=== PATIENT | male | born 1985 | race Hispanic/Latino ===

== ENCOUNTER 2024-12-12 15:50 | Observation (INO) | payer SELFPAY ==
[2024-12-12] MEDS ORDERED: Glucagon 1 MG/ML KIT IM PRN (18:50)
[2024-12-12] MEDS ORDERED: Ondansetron PF 4 MG/2 ML Vial IVP PRN (18:50)
[2024-12-12] MEDS ORDERED: Dextrose 50% Abboject 50 ML SYRINGE SLOW IVP PRN (18:50)
[2024-12-12] MEDS ORDERED: Ondansetron PF 4 MG/2 ML Vial ONE (19:40)
[2024-12-12] MEDS ORDERED: SUCCINYLCHOLINE/SOD CL,ISO/PF 200 MG/10 ML SYRINGE FS ONE (19:40)
[2024-12-12] MEDS ORDERED: Ketorolac Tromethamine 30 MG (1 mL) VIAL ONE (19:40)
[2024-12-12] MEDS ORDERED: Rocuronium Bromide 10 MG/ML (10ML VIAL) ONE (19:40)
[2024-12-12] MEDS ORDERED: Lidocaine 1% PF 5 ML VIAL ONE (19:40)
[2024-12-12] MEDS ORDERED: PROPOFOL 20 ML ONE (19:41)
[2024-12-12] MEDS ORDERED: fentaNYL PF 100 MCG/2 ML SYRINGE ONE ×2 (19:41→21:21)
[2024-12-12 20:04] VITALS: BMI 25.9
[2024-12-12] MEDS ORDERED: SUGAMMADEX SODIUM 200 MG/2 ML VIAL ONE (21:05)
[2024-12-12] MEDS ORDERED: HYDROmorphone 0.5 MG/0.5 ML SYRINGE ONE (21:21)
[2024-12-12] MEDS: Acetaminophen 325 MG TAB PO SCH (23:35)
[2024-12-13 05:42] LABS: #Basophils 0.04 10x3/uL (0.0-0.2); #Eosinophils Less than 0.03 10x3/uL (0.0-0.7); #Monocytes 0.49 10x3/uL (0.11-0.59); #Neutrophils 12.71 10x3/uL (1.40-6.50); %Basophils 0.3 % (0.0-1.0); %Eosinophils 0.0 % (0.0-10.0); %Lymphocytes 7.8 % (21.0-51.0); %Monocytes 3.4 % (0.0-10.0); %Neutrophils 88.2 % (42.0-75.0); Hematocrit 38.6 % (42.0-52.0); Hemoglobin 12.7 g/dL (14.0-18.0); Mean Corpuscular Hemoglobin 28.3 pg (27.0-31.0); Mean Corpuscular Volume 86.0 fL (78.0-98.0); Platelet Count 264 10x3/uL (130-400); Red Blood Cell (RBC) Count 4.49 mill/uL (4.70-6.10); White Blood Cell (WBC) Count 14.41 10x3/uL (4.8-10.8)
[2024-12-13 05:58] LABS: Anion Gap 13 mmol/L (10-20); BUN (Urea Nitrogen) 10 mg/dL (8.9-20.6); Calc. Creatinine Clearance 108 mL/min (70-130); Calcium 8.8 mg/dL (7.8-10.44); Carbon Dioxide 23 mmol/L (22-29); Chloride 107 mmol/L (98-107); Glucose 124 mg/dL (70-105); Potassium 4.1 mmol/L (3.5-5.1); Sodium 139 mmol/L (136-145)
[2024-12-13 11:53] VITALS: BP 100/62; TEMP 97.9
== END 2024-12-13 14:38 | disposition home or self-care (01) ==
LOC: SURG A 18:07
PROVIDERS: ADMIT Surgery; ATTEND Surgery
PROC: 0DTJ4ZZ Resection of Appendix, Percutaneous Endoscopic Approach (ICD-10-PCS; principal; 2024-12-12)
DX: K35.33 Acute appendicitis with perforation, localized peritonitis, and gangrene, with abscess (principal)
CPT/HCPCS: 36415; 80048; 85025; 88304; A4649; J0694; J1100; J1171; J1885; J2250; J2272; J2405; J2543; J2704; J3010; J7030